=== PATIENT | male | born 1970 | race Caucasian/White ===

== ENCOUNTER 2017-02-08 20:34 | Emergency (ER) | payer BC ==
[~2017-02-08] VITALS: Ht 182.9 cm; Wt 138.8 kg
[~2017-02-08 20:34] MED LIST: ADDERALL XR 2525 MG PO; ADDERALL20 MG PO; ADVAIR 100/501 DISK IH; ALBUTEROL SULF8.5 GM IH; AVELOX400 MG PO; Adderall XR PO; Buspar PO; LEVAQUIN500 MG PO; LEXAPRO; LISINOPRIL; LISINOPRIL5 MG PO; Motrin PO; PANTOPRAZOLE SO40 MG PO; PREDNISONE20 MG PO; REQUIP2 MG PO; TESSALON PERLE100 MG PO; Tussionex Pennkineti PO; [UNRECOGNIZED DRUG - OTHER] PO
[2017-02-08 21:28] LABS: HEMATOCRIT 50.5 % (38.0-50.0); MCH 28.9 PG (29.0-34.0); MCHC 33.3 G/DL (30.0-36.0); MCV 86.9 FL (86-99); MEAN PLAT.VOLUME 9.7 uM^3 (9.0-12.4); PLATELET COUNT 305 K/uL (156-360); RBC DIS.WIDTH-CV 13.4 % (11.8-14.6); RBC DIS.WIDTH-SD 42.7 % (39-53); RED BLOOD COUNT 5.81 M/uL (4.00-5.50); WHITE BLOOD COUNT 12.3 K/uL (4.1-10.2)
[2017-02-08 21:40] LABS: CHLORIDE 104 mEq/L (99-109); POTASSIUM 4.2 mEq/L (3.7-5.4); SODIUM 139 mEq/L (136-147)
[2017-02-08 21:43] LABS: GLUCOSE 87 mg/dL (70-99)
[2017-02-08 21:44] LABS: ANION GAP 12 MEQ/L (2-14)
[2017-02-08 21:45] LABS: TOTAL BILIRUBIN 0.6 mg/dL (0.0-1.0)
[2017-02-08 21:46] LABS: ALKALINE PHOSPHATASE 76 IU/L (3-129); GFR ESTIMATE (CALCULATED) > 59 mL/min/
[2017-02-08 21:47] LABS: UREA NITROGEN (BUN) 11 mg/dL (9-23)
[2017-02-08 22:46] LABS: ADD MIUA? YES; BILIRUBIN NEGATIVE; BLOOD NEGATIVE; COLOR YELLOW ((YELLOW)); GLUCOSE (STRIP) NEGATIVE; KETONES NEGATIVE; LEUKOCYTES MODERATE; NITRITE NEGATIVE; PROTEIN (STRIP) NEGATIVE; SPECIFIC GRAVITY 1.018 (1.000-1.030)
[2017-02-08 22:53] LABS: BACTERIA RARE /HPF; EPITHELIAL CELLS RARE /HPF; HYALINE CASTS 0-5 /LPF; MUCUS TRACE /LPF; RED BLOOD CELLS 0-5 /HPF (0-5); UCUL ADDED? NO; WHITE BLOOD CELLS 15-20 /HPF (0-5)
[2017-02-09] MEDS ORDERED: CIPRO500 MG PO (00:19)
[2017-02-09] MEDS ORDERED: FLAGYL500 MG PO (00:19)
[2017-02-09] MEDS ORDERED: PERCOCET 5/31 TABLET PO (00:22)
[2017-02-09 00:27] VITALS: BP 138/87
== END 2017-02-09 00:27 | disposition home or self-care (01) ==
LOC: EME 20:34
DX: K57.32 Diverticulitis of large intestine without perforation or abscess without bleeding (principal); K21.9 Gastro-esophageal reflux disease without esophagitis; F41.9 Anxiety disorder, unspecified; I10 Essential (primary) hypertension; F32.9 Major depressive disorder, single episode, unspecified
CPT/HCPCS: 74176; 80053; 81003; 85027; 99281; 99284; J1885